=== PATIENT | male | born 1975 | race Hispanic/Latino ===

== ENCOUNTER 2017-05-26 09:00 | Observation (INO) | payer OTHER ==
--- NOTE | 2017-05-26 09:59 | RAD ---
PA AND LATERAL VIEWS OF CHEST: Date: 05/26/17 HISTORY: Possible aspiration, respiratory failure. FINDINGS/IMPRESSION: Comparison made with exam from 0719 hours same date. There are changes of median sternotomy. The heart is enlarged. A tracheostomy tube is again seen. The lungs are expanded without confluent areas of consolidation, pneumothorax, aysha pulmonary edema, or pleural effusions. POS: H
--- NOTE | 2017-05-26 12:31 | HP ---
PRIMARY CARE PHYSICIAN: Porfirio North M.D. CHIEF COMPLAINT: Tracheostomy has become dislodged. HISTORY OF PRESENT ILLNESS: Mr. Montiel is a very pleasant 41-year-old gentleman who has a history of congenital pulmonary atresia. He currently resides at a nursing and rehabilitation center in [facility]. He has a tracheostomy and says that the reason he has a tracheostomy is that he has suffered a stroke while he was having a surgery and followup with regards to his congenital pulmonary atresia. He says he suffered a stroke and was hospitalized for a prolonged period of time and required trach eostomy. This is he says about a year ago and he was discharged to the nursing and rehabilitation [facility] in [place]. Apparently last night, his tracheostomy became dislodged. He was brought to the e mergency room here. The ER physician managed to replace the tracheostomy; however, there was some de gree of bleeding after it was replaced and they were concerned because he had a drop in his oxygen sa turations and for this reason, he is being placed in observation. Currently, the patient says he fee ls fine. He is sitting up on the stretcher watching TV. He denies any chest pain or shortness of br eath. He denies any pain. REVIEW OF SYSTEMS: Constitutional: Again, there are no fevers or chills. No night sweats. No weig ht loss. HEENT: He denies any headaches. No dizziness, no visual changes. No sore throat, rhinorr hea, neck pain, or adenopathy. Pulmonary: No hemoptysis, no cough, no wheezing. Cardiovascular: H e denies any chest pain. No shortness of breath, no PND, no orthopnea. Gastrointestinal: No abdomi nal pain, no nausea, no vomiting, no change in bowels. Genitourinary: No urinary frequency, hematur ia, or hesitancy. Neurologic: No focal weakness or numbness. No seizures. Psychiatric: No sympto ms of anxiety or depression. Skin and Integument: No skin changes. No rash. PAST MEDICAL HISTORY: Significant for congenital pulmonary atresia, atrial fibrillation, cerebrovasc ular accident. PAST SURGICAL HISTORY: He has had 4 cardiac surgeries related to his congenital pulmonary atresia. He has had a shunt placed. SOCIAL HISTORY: He says that he is common law . He is a former smoker. He quit 3 years ago. Denies any alcohol use. FAMILY HISTORY: No history of any inheritable diseases. ALLERGIES: No known drug allergies. MEDICATIONS: He did not know his medicines. These are taken from ER records and include DuoNebs p.r .n. q.6 hours, guaifenesin syrup q.6 as needed, bisacodyl suppository once a day as needed, triamcino lone topical p.r.n., aspirin 325 mg daily, amiodarone 100 mg daily, citalopram 20 mg daily, atorvasta tin 40 mg daily, docusate sodium 10 mL twice a day, midodrine 5 mg 3 times a day, simethicone chewabl e tablet 80 mg q.6 as needed, Zantac 1 tablet twice a day, trazodone 50 mg at bedtime, and aspirin 81 mg a day. PHYSICAL EXAMINATION: GENERAL: He is alert and oriented. He appears to be in no acute distress. He is well-developed and well-nourished. VITAL SIGNS: Blood pressure was 132/72, heart rate 88, temperature is 98.4. HEENT: Pupils are equal, round, and reactive. Extraocular muscles are intact. Sclerae are anicteri c. Throat: He has got a tracheostomy in place. There is no induration. There is some dried blood around the area. No bruits. LUNGS: Clear. There is no wheezing, no rales. CARDIOVASCULAR: He has a normal S1 and S2. No S3 or S4. No murmurs, clicks, or rubs. ABDOMEN: Soft, it is nontender, nondistended. Positive for bowel sounds. No rebound, no guarding. EXTREMITIES: He does have some edema in the right lower extremity. There is no warmth. He does hav e a scar on the right lower extremity on the díaz. Palpable dorsalis pedis pulses. NEUROLOGICAL: The exam is nonfocal. LABORATORY DATA: White blood cell count 6.9, hemoglobin 14.1, hematocrit is 45.6, platelet count is 217. Sodium is 137, potassium 4.0, chloride is 106, CO2 is 19, BUN of 14, creatinine 0.96, glucose i s 91. ASSESSMENT AND PLAN: This is a pleasant 41-year-old gentleman who had an accidental dislodgement of his tracheostomy. It has been replaced in the ER. However, he did have some hypoxemia and bleeding around the site and for this reason, he is being placed on observation overnight. We will go ahead a nd start him back on all of his usual regular medications after these have been verified and monitor him closely. If he is clinically stable without complications, then likely he can [facility] the [facility] tomorrow.
[2017-05-26] MEDS ORDERED: Ondansetron ODT 4 MG TAB PO PRN (14:15)
[2017-05-26] MEDS ORDERED: Acetaminophen 325 MG TAB PO PRN ×2 (14:15→16:37)
[2017-05-26] MEDS ORDERED: Mag-Al 1200 mg/1200 mg/30 ML UDCUP PO PRN (14:15)
[2017-05-26] MEDS ORDERED: Ondansetron HCl/PF 4 MG/2 ML Vial IVP PRN (14:15)
[2017-05-26 14:36] VITALS: BMI 27.4
[2017-05-26] MEDS ORDERED: Docusate 100 MG CAP PO PRN (16:37)
[2017-05-26] MEDS ORDERED: Simethicone Chewable 80 MG TAB PO PRN (16:37)
[2017-05-26] MEDS ORDERED: Diabetic Tussin 200 MG/10 ML UDCUP PO PRN (17:00)
[2017-05-26] MEDS ORDERED: Atorvastatin Calcium 40 MG TAB PO SCH (21:00)
[2017-05-26] MEDS ORDERED: Phenazopyridine HCl 97.5 MG TABLET PO PRN (21:00)
[2017-05-26] MEDS ORDERED: traZODone HCl 50 MG TAB PO SCH (21:00)
[2017-05-26] MEDS: Midodrine HCl 5 MG TAB PO SCH (21:37)
[2017-05-26] MEDS: Betamethasone 0.1% Cream 15 GM TUBE TOP SCH (21:38)
[2017-05-26] MEDS: Famotidine 20 MG TAB PO SCH (21:38)
[2017-05-27] MEDS: Midodrine HCl 5 MG TAB PO SCH (06:27)
[2017-05-27 07:40] VITALS: TEMP 98.5
[2017-05-27] MEDS: Famotidine 20 MG TAB PO SCH (08:41)
[2017-05-27] MEDS: Betamethasone 0.1% Cream 15 GM TUBE TOP SCH (08:43)
[2017-05-27] MEDS ORDERED: Amiodarone 200 MG TAB PO SCH (09:00)
[2017-05-27] MEDS ORDERED: Citalopram 20 MG TAB PO SCH (09:00)
[2017-05-27] MEDS ORDERED: Enoxaparin Sodium 40 MG/0.4 ML SYRINGE SC SCH (09:00)
--- NOTE | 2017-05-27 10:57 | PDOC.PN ---
- Subjective Encounter Start Date: 05/27/17 Encounter Start Time: 10:55 Mr. Montiel was seen today in follow-up of a dislodged trach. He does not have any complaints. - Objective Resuscitation Status: Resuscitation Status FULL:Full Resuscitation MAR Reviewed: Yes Vital Signs & Weight: Vital Signs (12 hours) Temp Pulse Resp BP Pulse Ox 05/27/17 07:27 98.5 F 83 18 05/27/17 04:07 97.8 F 80 20 93/56 L 94 L 05/27/17 01:37 20 93 L 05/27/17 00:02 75 20 93/54 L 96 05/26/17 23:35 18 96 Weight Weight 175 lb 6.4 oz I&O: 05/26/17 05/27/17 05/28/17 06:59 06:59 06:59 Intake Total 360 Balance 360 Phys Exam - Physical Examination HEENT: PERRLA Respiratory: no wheezing, no rales, no rhonchi, clear to auscultation bilateral Cardiovascular: RRR, no significant murmur Gastrointestinal: soft, non-tender, positive bowel sounds Musculoskeletal: no edema Dx/Plan (1) Tracheostomy mechanical complication Code(s): J95.03 - MALFUNCTION OF TRACHEOSTOMY STOMA Status: Acute (2) Cerebral vascular accident Code(s): I63.9 - CEREBRAL INFARCTION, UNSPECIFIED Status: Acute (3) Pulmonary atresia Code(s): Q22.0 - PULMONARY VALVE ATRESIA Status: Chronic - Plan * Dislodged Trach- this has been replaced, and he is clinically stable overnight * CVA- stable * Will discharge back to the Nursing facility.
[2017-05-27 11:25] VITALS: BP 104/59
--- NOTE | 2017-05-27 11:41 | DIS ---
PRIMARY CARE PHYSICIAN: Dr. Porfirio North DATE OF ADMISSION: 05/26/2017 DATE OF DISCHARGE: 05/27/2017 DISCHARGE DISPOSITION: Back to the [facility]. DISCHARGE MEDICATIONS: Zantac 150 mg daily, Kenalog cream as directed, Desyrel 50 mg at bedtime, Myl icon 80 mg q.6h. as needed, phenazopyridine 100 mg twice daily, midodrine 5 mg q.8h. as needed, albut satish, Atrovent nebs q.i.d. as needed, Colace 100 mg daily, citalopram 20 mg daily, Lipitor 40 mg at b edtime, aspirin 81 mg daily, amiodarone 100 mg daily, Tylenol 650 mg q.6h. as needed. CODE STATUS: Full code. ALLERGIES: No known drug allergies. HOSPITAL COURSE: Mr. Montiel is a pleasant 41-year-old gentleman who was sent over from the [facility] after his tracheostomy had become dislodged. He was seen in the emergency room and the tracheostomy was replaced. There was some concern because he had some bleeding and some hypo xemia. He was monitored overnight in observation. He had no complications to the procedure and is b eing transitioned back to the [facility].
== END 2017-05-27 13:50 | disposition home or self-care (01) ==
LOC: ERS 09:00 → 2SW 12:26 → ERS 13:45
PROVIDERS: ADMIT Internal Medicine; ATTEND Internal Medicine
DX: J95.03 Malfunction of tracheostomy stoma (principal); R09.02 Hypoxemia; Q25.5 Atresia of pulmonary artery; I48.91 Unspecified atrial fibrillation; Z98.890 Other specified postprocedural states; Z87.891 Personal history of nicotine dependence; Z86.73 Personal history of transient ischemic attack (TIA), and cerebral infarction without residual deficits
CPT/HCPCS: 71046; 96372; G0378; J1650; J7620